=== PATIENT | female | born 1990 | race Caucasian/White ===

== ENCOUNTER 2021-10-15 06:06 | Inpatient (IN) ==
[2021-10-15] MEDS ORDERED: OXYTOCIN 30 UNITS/500 ML BAG IV PRN ×3 (07:07→18:53)
[2021-10-15] MEDS ORDERED: ONDANSETRON INJ 2 MG/ML 2 ML VIAL IV PRN ×2 (07:27→11:11)
--- NOTE | 2021-10-15 07:33 | History & Physical Report ---
Date of Service October 15, 2021 Assessment & Plan (1) Premature rupture of membranes: Plan: 31-year-old G1, P0 at 38 weeks and 1 day gestation presenting with premature rupture of membranes at term, no signs of labor, Vital signs stable afebrile, heart rate reassuring, GBS negative, Discussed decreased risk of intermittent infection with induction of labor at term with oxytocin, Discussed pain management during labor with epidural, Patient understands all and agrees with induction of labor with oxytocin and will decide for epidural later, All questions were answered. Admission and Anticipated Discharge Date Admission Date: October 15, 2021 History of Present Illness Primary Care Provider: NO PCP Patient is a 31-year-old G1, P0 at 38 weeks and 1 day gestation who woke up with a gush of fluid leakage at 4:30 AM this morning. It was clear and she has been trickling clear fluid since then. She started to have mild irregular contractions, they are not painful yet. She denies vaginal bleeding, fever chills, headache, change in her vision, nausea or vomiting. She reports movements. Her has been complicated by, 1. Low-lying placenta, resolved, 2. Mild asthma, 3. Back pain, herniated disc, 4. COVID-19 during , on July 17, was mild disease, GBS negative Allergies Allergy/AdvReac Type Severity Reaction Status Date / Time cat dander Allergy Unknown Unknown Verified 10/15/21 07:19 pollen extracts Allergy Unknown Unknown Verified 10/15/21 07:19 Home Medications Medication Instructions Recorded Confirmed Type fluticasone 250 mcg-salmeterol 50 1 inh INHALATION BID 10/15/21 10/15/21 History mcg/dose blistr powdr for inhalation (Advair Diskus) vit no.95-ferrous 1 tab PO DAILY 10/15/21 10/15/21 History fumarate 28 mg-folic acid 800 mcg tablet () Patient History Medical History Asthma PRN inhaler Depression with anxiety no current meds Herniated disc Low-lying placenta resolved Surgical History No history of previous surgery Family History Other No known health problems Social History Smoking Status: Never smoker Hx Alcohol Use: No Hx Substance Use: No Preferred Language: Maltese Communication Ability: Effective 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 Hand Required: No Beliefs That Will Affect Care: None marital status: Galo Jennings Current Living Situation: Significant Other Current Living Situation Comment: house Other Information That Helps Us Care for You: No Feels Safe at Home: Yes and No Is there a partner from a previous relationship who is making you feel unsafe now?: No Any Concerns about Your Family Situation: No Would You Like to Speak to Someone About Your Situation: No Safety Concerns: Feels Safe At This Time 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 No history of STDs, herpes, chlamydia, gonorrhea Review of Systems as per Subjective / HPI Physical Exam Constitutional: WD/WN, vitals as above well developed, well nourished and + obese Comfortable, not in acute distress Gastrointestinal (Abdomen): normal bowel sounds, soft, nontender, no hepatosplenomegaly (Gravid) Genitourinary: normal external appearance (Grossly ruptured clear amniotic fluid) OB Exam Abdomen: + vertex Manual OB Exam: + cervical dilation 1 cm, + cervical effacement 50% and + station -2 OB Exam Monitor Tracing: + external uterine monitor used and + category I Results & Data ([facility]) Vital Signs (Past 12 Hours) Vital Signs Temp Pulse Resp BP 10/15/21 07:07 83 143/89 H 10/15/21 06:38 36.5 C 18 10/15/21 06:27 36.5 C 95 H 18 138/89
[2021-10-15 07:50] LABS: Hemoglobin 13.5 g/dL (12.0-16.0); Mean Corpuscular Hemoglobin 31.1 pg (25-34); Mean Corpuscular Hgb Conc 34.6 g/dL (32-36); Mean Corpuscular Volume 89.9 fL (80-100); Mean Platelet Volume 10.9 fL (7.4-10.4); Platelet Count 238 K/uL (130-400); RDW Coefficient of Variation 13.8 % (11.5-14.5); RDW Standard Deviation 45.7 fL (36.4-46.3); Red Blood Count 4.34 M/uL (4.2-5.4); White Blood Count 12.43 K/uL (4.8-10.8)
[2021-10-15] MEDS: FLUTICASONE/VILANTEROL 200/25MCG 14 PUFFS/INHALER INH SCH (08:05)
[2021-10-15] MEDS: LACTATED RINGER'S 1,000 ML IV PRN ×3 (08:17→17:55)
[2021-10-15 08:59] LABS: Alanine Aminotransferase 12 U/L (7-52); Albumin Level 3.4 gm/dl (3.4-5.0); Alkaline Phosphatase 197 U/L (34-104); Anion Gap 10 (3-11); BUN Creatinine Ratio 12.9 (10-20); Bilirubin,Total 0.3 mg/dl (0.2-1.0); Blood Urea Nitrogen 8 mg/dl (6-23); Calcium 8.8 mg/dl (8.5-10.1); Carbon Dioxide 20 mmol/L (21-32); Chloride 105 mmol/L (98-107); Creatinine Clr Calc Pharmacy 139.1 ml/min; Est GFR (African American) 138.3 ml/min; Est GFR (Non-African American) 119.3 ml/min; Glucose 78 mg/dl (70-99(Fasting)); Sodium 135 mmol/L (136-145)
[2021-10-15 09:35] LABS: Globulin 3.4 gm/dl (2.5-4.0); Total Protein 6.8 gm/dl (6.0-8.3)
[2021-10-15] MEDS ORDERED: BUPIVACAINE 0.25% 30 ML VIAL ONE (10:04)
[2021-10-15] MEDS ORDERED: fentaNYL citrate 100 MCG/2 ML VIAL ONE (10:04)
[2021-10-15] MEDS ORDERED: ePHEDrine sulfate 50 MG/ML AMP ONE (10:04)
[2021-10-15] MEDS ORDERED: SODIUM CHLORIDE 0.9% INJ 10 ML VIAL ONE (10:04)
[2021-10-15] MEDS ORDERED: fentaNYL 2MCG/ML ROPIVACAINE 1.25MG/ML 100 ML BAG EPI ONE (10:05)
[2021-10-15] MEDS ORDERED: NALOXONE HCL 0.4 MG/1 ML VIAL/CARP IV PRN (11:11)
[2021-10-15] MEDS ORDERED: ePHEDrine sulfate 50 MG/ML AMP IV PRN (11:11)
[2021-10-15] MEDS ORDERED: NALBUPHINE HCL INJ 10 MG/ML AMP IV PRN (11:11)
[2021-10-15] MEDS ORDERED: PROMETHAZINE HCL 6.25 MG in SODIUM CHLORIDE 0.9% 50 ML IV PRN (11:11)
[2021-10-15] MEDS ORDERED: NALOXONE HCL 1 MG in SODIUM CHLORIDE 0.9% 1000ML 1,000 ML IV PRN (11:11)
[2021-10-15] MEDS ORDERED: diphenhydrAMINE 50 MG/ML VIAL IV PRN (11:11)
[2021-10-15] MEDS ORDERED: fentaNYL 2MCG/ML ROPIVACAINE 1.25MG/ML 100 ML BAG EPI PRN (11:11)
--- NOTE | 2021-10-15 11:11 | Anesthesiology Consultation ---
Date of Service October 15, 2021 Assessment & Plan Chart Review Chart Review: Acceptable Risk for Surgery and Patient NOT seen in Pre Admission Testing Consults Requested none ASA ASA2 Proposed Anesthesia Anesthesia Type: Labor Epidural Risk / Benefits Reviewed With: PT / POA / Parent / Guardian, Accepts Plan and Informed Consent Obtained History Height/Weight Height: 5 ft 2 in Weight: 93.894 kg Allergies Allergy/AdvReac Type Severity Reaction Status Date / Time cat dander Allergy Unknown Unknown Verified 10/15/21 07:19 pollen extracts Allergy Unknown Unknown Verified 10/15/21 07:19 Medications Home Medications Medication Instructions Recorded Confirmed Last Taken fluticasone 250 mcg-salmeterol 50 1 inh INHALATION BID 10/15/21 10/15/21 Unknown mcg/dose blistr powdr for inhalation (Advair Diskus) vit no.95-ferrous 1 tab PO DAILY 10/15/21 10/15/21 10/14/21 fumarate 28 mg-folic acid 800 mcg tablet () Active Medications Generic Name Dose Route Start Last Admin Trade Name Freq PRN Reason Stop Dose Admin Fluticasone/Vilanterol 1 puffs 10/15/21 09:00 10/15/21 08:05 Fluticasone/Vilanterol 200/25mcg 14 Puffs/Inhaler INH 11/14/21 08:59 Not Given DAILY MARINO Lactated Ringer's 1,000 mls @ 150 mls/hr 10/15/21 07:07 10/15/21 10:58 Lr IV 10/17/21 07:06 125 mls/hr .[id number] PRN Administration L&D Protocol Protocol Oxytocin 30 units in 500 mls @ 4 mls/hr 10/15/21 07:35 10/15/21 09:15 Pitocin IV 10/17/21 07:34 0.24 units/hr .Q24H PRN 4 mls/hr Labor Induction/Augmentation Titration Protocol 0.24 UNITS/HR Past Medical History Medical History Asthma PRN inhaler Depression with anxiety no current meds Herniated disc Low-lying placenta resolved Exercise / Class Metabolic Activity II 4-5 Yardwork/Stairs/Walk up hill Past Family History Family History Other No known health problems Past Surgical History Surgical History No history of previous surgery Past Anesthesia History No Hx of Anesthesia Complications and No Family Hx of Anesthesia Complications History of PONV No Hx of PONV and No Hx of Motion Sickness Social History Smoking Status: Never smoker Hx Alcohol Use: No Hx Substance Use: No Physical Exam Vital Signs Last Vital Signs Temp 37.0 C 10/15/21 10:24 Pulse 88 10/15/21 11:08 Resp 18 10/15/21 08:18 BP 135/75 10/15/21 11:08 Pulse Ox 98 10/15/21 11:08 ENMT Mouth: no dentition abnormality Thyromental Distance: > or= 3.5 Finger Breadths Mallampati Class: II Neck normal visual inspection Respiratory normal respiratory effort Auscultation: lungs clear to auscultation bilaterally Cardiovascular Rate/Rhythm: regular rate and regular rhythm Psychiatric Orientation: alert Testing Laboratory Results 10/15/21 07:24 10/15/21 07:24 Blood Type A Positive 10/15/21 07:24 Blood Type Cancelled 10/15/21 07:24 Antibody Screen Cancelled 10/15/21 07:24 Antibody Screen NEGATIVE 10/15/21 07:24
--- NOTE | 2021-10-15 16:41 | Obstetrical Progress Note ---
Date of Service October 15, 2021 Assessment & Plan Admission and Anticipated Discharge Date Admission Date: October 15, 2021 Subjective Late entry from 1555 VE; 9.5 ( tiny lip on the left) 10%/ +1 FHR categ I She does not have urge to push Will continue to monitor closely Results & Data ([facility]) Vital Signs (Past 12 Hours) Vital Signs Temp Pulse Resp BP Pulse Ox 10/15/21 16:38 115 H 97 10/15/21 16:33 97 H 97 10/15/21 16:31 85 116/61 10/15/21 16:28 88 98 10/15/21 16:23 89 96 10/15/21 16:18 90 97 10/15/21 16:16 88 120/58 L 10/15/21 16:13 91 H 97 10/15/21 16:08 96 H 97 10/15/21 16:03 92 H 97 10/15/21 16:01 96 H 112/69 10/15/21 16:00 20 10/15/21 15:58 87 98 10/15/21 15:53 107 H 96 10/15/21 15:48 100 H 97 10/15/21 15:43 91 H 96 10/15/21 15:38 81 97 10/15/21 15:36 91 H 136/74 10/15/21 15:33 91 H 97 10/15/21 15:32 88 160/98 H 10/15/21 15:30 36.7 C 20 10/15/21 15:28 90 96 10/15/21 15:23 85 97 10/15/21 15:18 84 96 10/15/21 15:15 89 141/86 H 10/15/21 15:13 87 96 10/15/21 15:08 92 H 96 10/15/21 15:03 84 96 10/15/21 15:01 86 133/84 10/15/21 15:00 20 10/15/21 14:58 85 96 10/15/21 14:53 95 H 97 10/15/21 14:48 95 H 96 10/15/21 14:47 81 144/86 H 10/15/21 14:43 90 98 10/15/21 14:38 86 97 10/15/21 14:33 92 H 97 10/15/21 14:30 87 142/86 H 10/15/21 14:28 89 96 10/15/21 14:23 82 97 10/15/21 14:18 78 98 10/15/21 14:13 87 97 10/15/21 14:08 95 H 97 10/15/21 14:03 91 H 98 10/15/21 14:01 70 108/55 L 10/15/21 13:58 69 97 10/15/21 13:53 68 97 10/15/21 13:48 71 96 10/15/21 13:45 69 102/58 L 10/15/21 13:43 71 96 10/15/21 13:38 68 97 10/15/21 13:33 73 97 10/15/21 13:30 66 20 101/59 L 10/15/21 13:28 75 96 10/15/21 13:23 73 97 10/15/21 13:18 71 97 10/15/21 13:15 70 101/57 L 10/15/21 13:13 74 98 10/15/21 13:08 76 97 10/15/21 13:03 72 97 10/15/21 13:01 73 102/58 L 10/15/21 13:00 37.2 C 20 10/15/21 12:58 76 97 10/15/21 12:53 77 97 10/15/21 12:48 71 96 10/15/21 12:46 71 111/66 10/15/21 12:43 72 96 10/15/21 12:42 73 94 10/15/21 12:38 71 95 10/15/21 12:33 76 95 10/15/21 12:30 77 20 105/65 10/15/21 12:28 68 96 10/15/21 12:23 72 96 10/15/21 12:18 78 95 10/15/21 12:17 71 108/64 10/15/21 12:13 75 97 10/15/21 12:08 79 97 10/15/21 12:03 85 97 10/15/21 12:01 89 103/55 L 10/15/21 12:00 18 10/15/21 11:58 76 97 10/15/21 11:53 79 98 10/15/21 11:48 72 97 10/15/21 11:45 71 106/56 L 10/15/21 11:43 88 97 04/11/22 11:38 78 128/62 98 10/15/21 11:36 92 H 87/48 L 10/15/21 11:34 94 H 111/55 L 10/15/21 11:33 85 96 10/15/21 11:32 96 H 93/51 L 10/15/21 11:30 93 H 20 105/58 L 10/15/21 11:28 84 108/58 L 96 10/15/21 11:26 83 109/64 10/15/21 11:24 100 H 107/57 L 10/15/21 11:23 98 H 97 10/15/21 11:22 80 116/60 10/15/21 11:20 103 H 123/63 10/15/21 11:18 89 133/68 96 10/15/21 11:16 93 H 125/68 10/15/21 11:15 93 H 132/70 10/15/21 11:13 99 H 96 10/15/21 11:12 88 141/71 H 10/15/21 11:10 98 H 131/68 10/15/21 11:08 88 135/75 98 10/15/21 11:04 87 167/88 H 10/15/21 11:03 86 98 10/15/21 11:02 85 179/92 H 10/15/21 10:58 87 97 10/15/21 10:55 36.7 C 20 10/15/21 10:53 90 98 10/15/21 10:48 80 98 10/15/21 10:43 79 97 10/15/21 10:38 78 96 10/15/21 10:33 81 155/90 H 97 10/15/21 10:24 37.0 C 10/15/21 09:48 87 139/85 10/15/21 08:18 18 10/15/21 07:30 37.0 C 18 10/15/21 07:07 83 143/89 H 10/15/21 06:38 36.5 C 18 10/15/21 06:27 36.5 C 95 H 18 138/89
--- NOTE | 2021-10-15 16:42 | Obstetrical Progress Note ---
Date of Service October 15, 2021 Assessment & Plan Admission and Anticipated Discharge Date Admission Date: October 15, 2021 Subjective Patient is reevaluated She feels pressure FHR categ I VE: 10/100%/ +2 Will start pushing Continue to monitor closely Anticipate Results & Data ([facility]) Vital Signs (Past 12 Hours) Vital Signs Temp Pulse Resp BP Pulse Ox 10/15/21 16:38 115 H 97 10/15/21 16:33 97 H 97 10/15/21 16:31 85 116/61 10/15/21 16:28 88 98 10/15/21 16:23 89 96 10/15/21 16:18 90 97 10/15/21 16:16 88 120/58 L 10/15/21 16:13 91 H 97 10/15/21 16:08 96 H 97 10/15/21 16:03 92 H 97 10/15/21 16:01 96 H 112/69 10/15/21 16:00 20 10/15/21 15:58 87 98 10/15/21 15:53 107 H 96 10/15/21 15:48 100 H 97 10/15/21 15:43 91 H 96 10/15/21 15:38 81 97 10/15/21 15:36 91 H 136/74 10/15/21 15:33 91 H 97 10/15/21 15:32 88 160/98 H 10/15/21 15:30 36.7 C 20 10/15/21 15:28 90 96 10/15/21 15:23 85 97 10/15/21 15:18 84 96 10/15/21 15:15 89 141/86 H 10/15/21 15:13 87 96 10/15/21 15:08 92 H 96 10/15/21 15:03 84 96 10/15/21 15:01 86 133/84 10/15/21 15:00 20 10/15/21 14:58 85 96 10/15/21 14:53 95 H 97 10/15/21 14:48 95 H 96 10/15/21 14:47 81 144/86 H 10/15/21 14:43 90 98 10/15/21 14:38 86 97 10/15/21 14:33 92 H 97 10/15/21 14:30 87 142/86 H 10/15/21 14:28 89 96 10/15/21 14:23 82 97 10/15/21 14:18 78 98 10/15/21 14:13 87 97 10/15/21 14:08 95 H 97 10/15/21 14:03 91 H 98 10/15/21 14:01 70 108/55 L 10/15/21 13:58 69 97 10/15/21 13:53 68 97 10/15/21 13:48 71 96 10/15/21 13:45 69 102/58 L 10/15/21 13:43 71 96 10/15/21 13:38 68 97 10/15/21 13:33 73 97 10/15/21 13:30 66 20 101/59 L 10/15/21 13:28 75 96 10/15/21 13:23 73 97 10/15/21 13:18 71 97 10/15/21 13:15 70 101/57 L 10/15/21 13:13 74 98 10/15/21 13:08 76 97 10/15/21 13:03 72 97 10/15/21 13:01 73 102/58 L 10/15/21 13:00 37.2 C 20 10/15/21 12:58 76 97 10/15/21 12:53 77 97 10/15/21 12:48 71 96 10/15/21 12:46 71 111/66 10/15/21 12:43 72 96 10/15/21 12:42 73 94 10/15/21 12:38 71 95 10/15/21 12:33 76 95 10/15/21 12:30 77 20 105/65 10/15/21 12:28 68 96 10/15/21 12:23 72 96 10/15/21 12:18 78 95 10/15/21 12:17 71 108/64 10/15/21 12:13 75 97 10/15/21 12:08 79 97 10/15/21 12:03 85 97 10/15/21 12:01 89 103/55 L 10/15/21 12:00 18 10/15/21 11:58 76 97 10/15/21 11:53 79 98 10/15/21 11:48 72 97 10/15/21 11:45 71 106/56 L 10/15/21 11:43 88 97 10/15/21 11:38 78 128/62 98 10/15/21 11:36 92 H 87/48 L 10/15/21 11:34 94 H 111/55 L 10/15/21 11:33 85 96 10/15/21 11:32 96 H 93/51 L 10/15/21 11:30 93 H 20 105/58 L 10/15/21 11:28 84 108/58 L 96 10/15/21 11:26 83 109/64 10/15/21 11:24 100 H 107/57 L 10/15/21 11:23 98 H 97 10/15/21 11:22 80 116/60 10/15/21 11:20 103 H 123/63 10/15/21 11:18 89 133/68 96 10/15/21 11:16 93 H 125/68 10/15/21 11:15 93 H 132/70 10/15/21 11:13 99 H 96 10/15/21 11:12 88 141/71 H 10/15/21 11:10 98 H 131/68 10/15/21 11:08 88 135/75 98 10/15/21 11:04 87 167/88 H 10/15/21 11:03 86 98 10/15/21 11:02 85 179/92 H 10/15/21 10:58 87 97 10/15/21 10:55 36.7 C 20 10/15/21 10:53 90 98 10/15/21 10:48 80 98 10/15/21 10:43 79 97 10/15/21 10:38 78 96 10/15/21 10:33 81 155/90 H 97 10/15/21 10:24 37.0 C 10/15/21 09:48 87 139/85 10/15/21 08:18 18 10/15/21 07:30 37.0 C 18 10/15/21 07:07 83 143/89 H 10/15/21 06:38 36.5 C 18 10/15/21 06:27 36.5 C 95 H 18 138/89
[2021-10-15] MEDS ORDERED: MINERAL OIL 30 ML UDC ONE (17:07)
--- NOTE | 2021-10-15 17:50 | Obstetrical Progress Note ---
Date of Service October 15, 2021 Assessment & Plan Admission and Anticipated Discharge Date Admission Date: October 15, 2021 Subjective Patient has been pushing with good efforts for about an hour. small caput is v isible with pushes. FHR categ I Anticipate Continue to monitor Results & Data ([facility]) Vital Signs (Past 12 Hours) Vital Signs Temp Pulse Resp BP Pulse Ox 10/15/21 17:47 129 H 144/69 H 10/15/21 17:43 152 H 97 10/15/21 17:38 119 H 98 10/15/21 17:33 122 H 97 10/15/21 17:30 118 H 145/82 H 10/15/21 17:28 155 H 97 10/15/21 17:23 147 H 96 10/15/21 17:18 144 H 96 10/15/21 17:17 136 H 145/78 H 10/15/21 17:13 130 H 97 10/15/21 17:12 129 H 90 10/15/21 17:08 135 H 96 10/15/21 17:03 131 H 96 10/15/21 16:58 162 H 98 10/15/21 16:53 139 H 98 10/15/21 16:48 155 H 98 10/15/21 16:43 115 H 97 10/15/21 16:38 115 H 97 10/15/21 16:33 97 H 97 10/15/21 16:31 85 116/61 10/15/21 16:28 88 98 10/15/21 16:23 89 96 10/15/21 16:18 90 97 10/15/21 16:16 88 120/58 L 10/15/21 16:13 91 H 97 10/15/21 16:08 96 H 97 10/15/21 16:03 92 H 97 10/15/21 16:01 96 H 112/69 10/15/21 16:00 20 10/15/21 15:58 87 98 10/15/21 15:53 107 H 96 10/15/21 15:48 100 H 97 10/15/21 15:43 91 H 96 10/15/21 15:38 81 97 10/15/21 15:36 91 H 136/74 10/15/21 15:33 91 H 97 10/15/21 15:32 88 160/98 H 10/15/21 15:30 36.7 C 20 10/15/21 15:28 90 96 10/15/21 15:23 85 97 10/15/21 15:18 84 96 10/15/21 15:15 89 141/86 H 10/15/21 15:13 87 96 10/15/21 15:08 92 H 96 10/15/21 15:03 84 96 10/15/21 15:01 86 133/84 10/15/21 15:00 20 10/15/21 14:58 85 96 10/15/21 14:53 95 H 97 10/15/21 14:48 95 H 96 10/15/21 14:47 81 144/86 H 10/15/21 14:43 90 98 10/15/21 14:38 86 97 10/15/21 14:33 92 H 97 10/15/21 14:30 87 142/86 H 10/15/21 14:28 89 96 10/15/21 14:23 82 97 10/15/21 14:18 78 98 10/15/21 14:13 87 97 10/15/21 14:08 95 H 97 10/15/21 14:03 91 H 98 10/15/21 14:01 70 108/55 L 10/15/21 13:58 69 97 10/15/21 13:53 68 97 10/15/21 13:48 71 96 10/15/21 13:45 69 102/58 L 10/15/21 13:43 71 96 10/15/21 13:38 68 97 10/15/21 13:33 73 97 10/15/21 13:30 66 20 101/59 L 10/15/21 13:28 75 96 10/15/21 13:23 73 97 10/15/21 13:18 71 97 10/15/21 13:15 70 101/57 L 10/15/21 13:13 74 98 10/15/21 13:08 76 97 10/15/21 13:03 72 97 10/15/21 13:01 73 102/58 L 10/15/21 13:00 37.2 C 20 10/15/21 12:58 76 97 10/15/21 12:53 77 97 10/15/21 12:48 71 96 10/15/21 12:46 71 111/66 10/15/21 12:43 72 96 10/15/21 12:42 73 94 10/15/21 12:38 71 95 10/15/21 12:33 76 95 10/15/21 12:30 77 20 105/65 10/15/21 12:28 68 96 10/15/21 12:23 72 96 10/15/21 12:18 78 95 10/15/21 12:17 71 108/64 10/15/21 12:13 75 97 10/15/21 12:08 79 97 10/15/21 12:03 85 97 10/15/21 12:01 89 103/55 L 10/15/21 12:00 18 10/15/21 11:58 76 97 10/15/21 11:53 79 98 10/15/21 11:48 72 97 10/15/21 11:45 71 106/56 L 10/15/21 11:43 88 97 10/15/21 11:38 78 128/62 98 10/15/21 11:36 92 H 87/48 L 10/15/21 11:34 94 H 111/55 L 10/15/21 11:33 85 96 10/15/21 11:32 96 H 93/51 L 10/15/21 11:30 93 H 20 105/58 L 10/15/21 11:28 84 108/58 L 96 10/15/21 11:26 83 109/64 10/15/21 11:24 100 H 107/57 L 10/15/21 11:23 98 H 97 10/15/21 11:22 80 116/60 10/15/21 11:20 103 H 123/63 10/15/21 11:18 89 133/68 96 10/15/21 11:16 93 H 125/68 10/15/21 11:15 93 H 132/70 10/15/21 11:13 99 H 96 10/15/21 11:12 88 141/71 H 10/15/21 11:10 98 H 131/68 10/15/21 11:08 88 135/75 98 10/15/21 11:04 87 167/88 H 10/15/21 11:03 86 98 10/15/21 11:02 85 179/92 H 10/15/21 10:58 87 97 10/15/21 10:55 36.7 C 20 10/15/21 10:53 90 98 10/15/21 10:48 80 98 10/15/21 10:43 79 97 10/15/21 10:38 78 96 10/15/21 10:33 81 155/90 H 97 10/15/21 10:24 37.0 C 10/15/21 09:48 87 139/85 10/15/21 08:18 18 10/15/21 07:30 37.0 C 18 10/15/21 07:07 83 143/89 H 10/15/21 06:38 36.5 C 18 10/15/21 06:27 36.5 C 95 H 18 138/89
[2021-10-15] MEDS ORDERED: METHYLERGONOVINE MALEATE 0.2 MG/ML AMP ONE (18:29)
[2021-10-15] MEDS ORDERED: bisacodyL 10 MG SUPP PR PRN (18:53)
[2021-10-15] MEDS ORDERED: BENZOCAINE 20% AER SPR 82.5 GM CAN EXT PRN (18:53)
[2021-10-15] MEDS ORDERED: ACETAMINOPHEN 325 MG TAB PO PRN (18:53)
[2021-10-15] MEDS ORDERED: DIPHTHERIA/TETANUS/PERTUSSIS 0.5 ML SYR/VIAL IM ONE (18:53)
[2021-10-15] MEDS ORDERED: METHYLERGONOVINE MALEATE 0.2 MG/ML AMP IM ONE (18:53)
[2021-10-15] MEDS ORDERED: MEASLES, MUMPS & RUBELLA VIRUS VIAL SQ ONE (18:53)
[2021-10-15] MEDS ORDERED: HYDROCORTISONE ACETATE 25 MG SUPP PR PRN (18:53)
[2021-10-15] MEDS ORDERED: OXYTOCIN 20 UNITS in LACTATED RINGER'S 1,000 ML IV SCH (19:00)
--- NOTE | 2021-10-15 19:02 | Delivery Summary ---
Vaginal Delivery Summary Date of Service October 15, 2021 Vaginal Delivery Summary Patient was found to be fully dilated and desire to push. She Pushed for about 1-1/2 hours and delivered the head without difficulty. The shoulders were delivered with minimal traction and the baby was handed off to the mother that her mouth and nose were suctioned and the cord was clamped x2 and cut at 1 minute delay.The vagina and perineum were checked for lacerations. there was a second-degree perineal laceration which was confirmed with rectal exam, excellent Sphincter tone was noted. And there was another second-degree vaginal laceration at the right vaginal wall aiming towards superiorly anterior fornix. Rectal exam was repeated and the perineal body muscles around the sphincter were held with Allis clamps to support the sphincter.[id number] stitches were placed on the muscles with 2-0 Vicryl x2. Then the rectal exam was finished gloves were changed rest of the vaginal Mucosa was repaired with another 2-0 Vicryl in a running fashion skin in a subcuticular fashion. Average retractor was placed in the anterior vaginal wall to visualize the laceration on the lateral vagina. It was repaired with 2-0 Vicryl in a running fashion. Excellent hemostasis achieved. Then the placenta was found to be in the vagina, delivered spontaneously as intact and complete. Uterus was explored and found to be empty cleared of all clots and debris's.EBL was 300 mL. Vaginal packing was placed in the vagina and the Hamilton catheter was placed to drain the bladder. Those will be removed in the morning. The mom and baby tolerated procedure well. The sponge needle instrument count was correct x2. There was a viable male infant Apgars 8/9 and weight is pending. No complications happened and I was present during whole procedure.
--- NOTE | 2021-10-15 19:26 | Anesthesia Procedure Note ---
Date of Service October 15, 2021 Anesthesia Post Epidural Note Vital Signs Vital Signs: Temp Pulse Resp BP Pulse Ox 36.7 C 98 H 18 143/70 H 97 10/15/21 15:30 10/15/21 19:18 10/15/21 19:03 10/15/21 19:18 10/15/21 18:23 Notes Mental Status: alert / awake / arousable Nausea / Vomiting: adequately controlled Pain: adequately controlled Airway Patency, RR, SpO2: stable & adequate BP & HR: stable & adequate Hydration State: stable & adequate Neuraxial Anesthesia: was administered and sensory block is resolving Anesthetic Complications: no major complications apparent and Pt Satisfied with anesthetic care Epidural: Removed without complications and With tip intact
[2021-10-15] MEDS: IBUPROFEN 600 MG TAB PO PRN (21:13)
[2021-10-15] MEDS: DOCUSATE SODIUM 100 MG CAP PO SCH (21:13)
[2021-10-15] MEDS: METHYLERGONOVINE MALEATE 0.2 MG TAB PO SCH (21:38)
[2021-10-15] MEDS: MAGNESIUM HYDROXIDE SUSP 30 ML UDC PO SCH (21:41)
[2021-10-16] MEDS: oxyCODONE/ACETAMINOPHEN 5mg/325mg TAB PO PRN ×3 (00:17→23:25)
[2021-10-16] MEDS: IBUPROFEN 600 MG TAB PO PRN ×5 (04:31→20:40)
[2021-10-16] MEDS: METHYLERGONOVINE MALEATE 0.2 MG TAB PO SCH ×6 (04:33→20:40)
[2021-10-16 06:51] LABS: Hematocrit (blood only) 32.7 % (37-47); Hemoglobin 11.6 g/dL (12.0-16.0); Mean Corpuscular Hemoglobin 31.8 pg (25-34); Mean Corpuscular Hgb Conc 35.5 g/dL (32-36); Mean Corpuscular Volume 89.6 fL (80-100); Mean Platelet Volume 10.4 fL (7.4-10.4); Platelet Count 193 K/uL (130-400); RDW Coefficient of Variation 13.8 % (11.5-14.5); RDW Standard Deviation 45.3 fL (36.4-46.3); Red Blood Count 3.65 M/uL (4.2-5.4); White Blood Count 19.07 K/uL (4.8-10.8)
--- NOTE | 2021-10-16 07:29 | Obstetrical Progress Note ---
Date of Service October 16, 2021 Assessment & Plan (1) Normal course: Continue routine care Will give 1 dose of Percocet prior to vaginal packing and Shah to be removed moved this morning Anticipate discharge home tomorrow Subjective Ambulation: limited ambulation Voiding: shah catheter in place Passing Gas:: Yes Diet Tolerance:: regular diet Lochia:: Small Feeding Type:: breast feeding Current Pain Level(1-10): 4 vaginal packing and shah in place this morning Physical Exam Constitutional WD/WN, vitals as above Respiratory normal respiratory effort, lungs clear to auscultation Cardiovascular RRR, no murmur, no edema Gastrointestinal (Abdomen) normal bowel sounds, soft, nontender, no hepatosplenomegaly Results & Data ([facility]) Vital Signs (Past 12 Hours) Vital Signs Temp Pulse Pulse Resp BP BP 10/16/21 03:45 36.6 C 84 18 120/81 10/16/21 00:10 36.8 C 85 18 126/82 10/15/21 21:40 36.8 C 90 18 124/78 10/15/21 20:48 36.8 C 86 18 116/67 10/15/21 20:33 98 H 134/81 10/15/21 20:18 101 H 118/65 10/15/21 20:17 18 10/15/21 20:03 90 121/61 10/15/21 19:49 87 122/64 10/15/21 19:48 18 10/15/21 19:40 83 136/72 10/15/21 19:34 92 H 148/94 H 10/15/21 19:32 36.8 C 18 Laboratory Results H/H 11.6/32.7%
[2021-10-16] MEDS ORDERED: oxyCODONE/ACETAMINOPHEN 5mg/325mg TAB PO ONE (07:42)
[2021-10-16] MEDS: FERROUS SULFATE 325 MG TAB PO SCH (08:14)
[2021-10-16] MEDS: DOCUSATE SODIUM 100 MG CAP PO SCH ×2 (08:14→20:40)
[2021-10-16] MEDS: PRENATAL VITAMIN 1 TAB PO SCH (08:15)
[2021-10-16] MEDS: MAGNESIUM HYDROXIDE SUSP 30 ML UDC PO SCH ×2 (08:16→20:42)
[2021-10-16] MEDS: FLUTICASONE/VILANTEROL 200/25MCG 14 PUFFS/INHALER INH SCH (08:22)
[2021-10-16] MEDS ORDERED: bisacodyL 5 MG TABEC PO SCH (20:00)
[2021-10-17] MEDS: IBUPROFEN 600 MG TAB PO PRN ×2 (05:59→12:45)
[2021-10-17 07:11] LABS: Basophils # (auto) 0.03 K/uL (0-0.2); Basophils % (auto) 0.2 %; Eosinophils # (auto) 0.34 K/uL (0-0.5); Hematocrit (blood only) 31.3 % (37-47); Hemoglobin 10.6 g/dL (12.0-16.0); Immature Granulocytes # (auto) 0.07 K/uL (0.00-0.02); Immature Granulocytes % (auto) 0.4 %; Mean Corpuscular Hemoglobin 30.9 pg (25-34); Mean Corpuscular Hgb Conc 33.9 g/dL (32-36); Mean Corpuscular Volume 91.3 fL (80-100); Mean Platelet Volume 10.6 fL (7.4-10.4); Monocytes % (auto) 6.4 %; Neutrophils # (auto) 13.22 K/uL (1.4-6.5); Platelet Count 212 K/uL (130-400); RDW Coefficient of Variation 14.2 % (11.5-14.5); RDW Standard Deviation 46.8 fL (36.4-46.3); Red Blood Count 3.43 M/uL (4.2-5.4); White Blood Count 17.16 K/uL (4.8-10.8)
--- NOTE | 2021-10-17 07:42 | Obstetrical Progress Note ---
Date of Service October 17, 2021 Assessment & Plan Admission and Anticipated Discharge Date Admission Date: October 15, 2021 Subjective Patient is seen and examined. She feels well, no complaints. Ambulating without dizziness Voiding without difficulty Tolerating regular diet with out N&V Bleeding is minimal No fever/ chills/ CP/ SOB/ N&V/ Leg pain Breast feeding without problems Vital Signs Temp Pulse Resp BP Pulse Ox 10/16/21 23:00 36.3 C L 86 16 114/78 10/16/21 15:50 36.9 C 83 20 101/68 97 10/16/21 12:30 36.2 C L 84 16 129/86 Lab Results 10/15/21 10/15/21 10/15/21 Range/Units 07:24 07:24 07:24 WBC 12.43 H (4.8-10.8) K/uL RBC 4.34 (4.2-5.4) M/uL Hgb 13.5 (12.0-16.0) g/dL Hct 39.0 (37-47) % MCV 89.9 (80-100) fL MCH 31.1 (25-34) pg MCHC 34.6 (32-36) g/dL RDW Std Deviation 45.7 (36.4-46.3) fL RDW Coeff of Farzana 13.8 (11.5-14.5) % Plt Count 238 (130-400) K/uL MPV 10.9 H (7.4-10.4) fL Immature Gran % (Auto) % Neut % (Auto) % Lymph % (Auto) % [place] % (Auto) % Eos % (Auto) % Baso % (Auto) % Neut # (Auto) (1.4-6.5) K/uL Lymph # (Auto) (1.2-3.4) K/uL [place] # (Auto) (0.11-0.59) K/uL Eos # (Auto) (0-0.5) K/uL Baso # (Auto) (0-0.2) K/uL Immature Gran # (Auto) (0.00-0.02) K/uL Sodium 135 L (136-145) mmol/L Potassium TNP Chloride 105 (98-107) mmol/L Carbon Dioxide 20 L (21-32) mmol/L Anion Gap 10 (3-11) BUN 8 (6-23) mg/dl Creatinine 0.62 (0.6-1.2) mg/dl Est Cr Clr Drug Dosing 139.1 ml/min Est GFR ( Amer) 138.3 ml/min Est GFR (Non-Af Amer) 119.3 ml/min BUN/Creatinine Ratio 12.9 (10-20) Glucose 78 (70-99(Fasting)) mg/dl Calcium 8.8 (8.5-10.1) mg/dl Total Bilirubin 0.3 (0.2-1.0) mg/dl AST TNP ALT 12 (7-52) U/L Alkaline Phosphatase 197 H (34-104) U/L Total Protein 6.8 (6.0-8.3) gm/dl Albumin 3.4 (3.4-5.0) gm/dl Globulin 3.4 (2.5-4.0) gm/dl Albumin/Globulin Ratio 1.0 (0.9-2) Blood Type A Positive Antibody Screen NEGATIVE 10/15/21 10/16/21 10/17/21 Range/Units 07:24 06:38 06:35 WBC 19.07 H 17.16 H (4.8-10.8) K/uL RBC 3.65 L 3.43 L (4.2-5.4) M/uL Hgb 11.6 L 10.6 L (12.0-16.0) g/dL Hct 32.7 L 31.3 L (37-47) % MCV 89.6 91.3 (80-100) fL MCH 31.8 30.9 (25-34) pg MCHC 35.5 33.9 (32-36) g/dL RDW Std Deviation 45.3 46.8 H (36.4-46.3) fL RDW Coeff of Farzana 13.8 14.2 (11.5-14.5) % Plt Count 193 212 (130-400) K/uL MPV 10.4 10.6 H (7.4-10.4) fL Immature Gran % (Auto) 0.4 % Neut % (Auto) 77.0 % Lymph % (Auto) 14.0 % [place] % (Auto) 6.4 % Eos % (Auto) 2.0 % Baso % (Auto) 0.2 % Neut # (Auto) 13.22 H (1.4-6.5) K/uL Lymph # (Auto) 2.40 (1.2-3.4) K/uL [place] # (Auto) 1.10 H (0.11-0.59) K/uL Eos # (Auto) 0.34 (0-0.5) K/uL Baso # (Auto) 0.03 (0-0.2) K/uL Immature Gran # (Auto) 0.07 H (0.00-0.02) K/uL Sodium (136-145) mmol/L Potassium Chloride (98-107) mmol/L Carbon Dioxide (21-32) mmol/L Anion Gap (3-11) BUN (6-23) mg/dl Creatinine (0.6-1.2) mg/dl Est Cr Clr Drug Dosing ml/min Est GFR ( Amer) ml/min Est GFR (Non-Af Amer) ml/min BUN/Creatinine Ratio (10-20) Glucose (70-99(Fasting)) mg/dl Calcium (8.5-10.1) mg/dl Total Bilirubin (0.2-1.0) mg/dl AST ALT (7-52) U/L Alkaline Phosphatase (34-104) U/L Total Protein (6.0-8.3) gm/dl Albumin (3.4-5.0) gm/dl Globulin (2.5-4.0) gm/dl Albumin/Globulin Ratio (0.9-2) Blood Type Cancelled Antibody Screen Cancelled PE: General: Alert, orientedx3, NAD Abd: soft, NT, fundus firm, below Umbilicus Perineum intact, Lochia rubra minimal Ext; NT, no edema AP: 31 yo s/p , ppd# 2 VSS Afebrile doing well Continue routine care All questions were answered Discussed when to call D/C home , f/u in office Results & Data ([facility]) Vital Signs (Past 12 Hours) Vital Signs Temp Pulse Resp BP 10/16/21 23:00 36.3 C L 86 16 114/78
[2021-10-17] MEDS: FERROUS SULFATE 325 MG TAB PO SCH (08:07)
[2021-10-17] MEDS: MAGNESIUM HYDROXIDE SUSP 30 ML UDC PO SCH (08:07)
[2021-10-17] MEDS: DOCUSATE SODIUM 100 MG CAP PO SCH (08:07)
[2021-10-17] MEDS: PRENATAL VITAMIN 1 TAB PO SCH (08:07)
[2021-10-17] MEDS: FLUTICASONE/VILANTEROL 200/25MCG 14 PUFFS/INHALER INH SCH (08:11)
== END 2021-10-17 16:27 | disposition home or self-care (01) | DRG 807 ==
LOC: OPB 06:06 → 4S1 06:10 → UNDODISIN 12:20 → 4E2 21:59
DX: O70.1 Second degree perineal laceration during delivery; J45.909 Unspecified asthma, uncomplicated; Z86.16 Personal history of COVID-19; Z3A.38 38 weeks gestation of pregnancy; O99.52 Diseases of the respiratory system complicating childbirth; O42.92 Full-term premature rupture of membranes, unspecified as to length of time between rupture and onset of labor; Z37.0 Single live birth

== ENCOUNTER 2023-11-11 03:23 | Inpatient (IN) ==
--- NOTE | 2023-11-11 04:17 | Obstetrical Progress Note ---
Date of Service November 11, 2023 Assessment & Plan (1) Encounter for pre-operative examination: Plan: at 39+ weeks SROM @ 02;00 VE /-1 Bedside sono VT consented for c/sec Risk and alternatives discussed and reviewed with pt Results & Data Vital Signs (Past 12 Hours) Vital Signs Temp Pulse Resp BP 11/11/23 03:51 95 H 142/93 H 11/11/23 03:39 36.6 C 18 11/11/23 03:38 98 H 144/86 H
[2023-11-11] MEDS: LACTATED RINGER'S 1,000 ML IV SCH ×3 (04:24→08:08)
--- NOTE | 2023-11-11 04:36 | Anesthesiology Consultation ---
Date of Service November 11, 2023 Assessment & Plan (1) Encounter for pre-operative examination: Chart Review Chart Review: Acceptable Risk for Surgery History Surgery Operation Date: 11/11/23 05:00 Proposed Procedures p Section in LD - Logan Gordon MD Height/Weight Height: 5 ft 2 in Weight: 91.626 kg Allergies Allergy/AdvReac Type Severity Reaction Status Date / Time cat dander Allergy Unknown Unknown Verified 10/22/22 08:43 pollen extracts Allergy Unknown Unknown Verified 10/22/22 08:43 Medications Home Medications Medication Instructions Recorded Confirmed Last Taken fluticasone 250 mcg-salmeterol 50 1 inh inhalation BID PRN sob 12/06/21 11/11/23 Unknown mcg/dose blistr powdr for inhalation (Advair Diskus) vit no.95-ferrous 1 tab PO DAILY 11/10/23 11/11/23 11/10/23 fumarate 28 mg-folic acid 800 mcg tablet () Active Medications Generic Name Dose Route Start Last Admin Trade Name Freq PRN Reason Stop Dose Admin Lactated Ringer's 1,000 mls @ 999 mls/hr 11/11/23 04:15 11/11/23 04:24 Lr IV 11/11/23 05:15 999 mls/hr .[id number] MARINO Administration Past Medical History Medical History Environmental and seasonal allergies History of COVID-2021- no hosp; resolved Herniated disc lumbar area Asthma PRN inhaler- has not uses since ~2021 Depression with anxiety no current meds Past Family History Family History Grandfather Colorectal cancer Father Hypertension Stroke Other Diabetes Denies family history of Ovarian cancer Prostate cancer Myocardial infarction Breast cancer Past Surgical History Surgical History History of surgical removal of Bartholin’s gland cyst Hx of removal of cyst tear duct History of removal of skin mole Social History Smoking Status: Never smoker Do You Dip or Chew Tobacco: No Hx Alcohol Use: No Hx Substance Use: No substance use type: does not use Physical Exam Vital Signs Last Vital Signs Temp 36.6 C 11/11/23 03:39 Pulse 95 H 11/11/23 03:51 Resp 18 11/11/23 03:39 BP 142/93 H 11/11/23 03:51
[2023-11-11 04:41] LABS: Basophils # (auto) 0.04 K/uL (0.00-0.20); Basophils % (auto) 0.3 %; Eosinophils # (auto) 0.24 K/uL (0.00-0.50); Eosinophils % (auto) 1.7 %; Hematocrit (blood only) 37.1 % (37.0-47.0); Immature Granulocytes # (auto) 0.09 K/uL (0.01-0.20); Immature Granulocytes % (auto) 0.7 %; Lymphocytes # (auto) 2.07 K/uL (1.20-3.40); Mean Corpuscular Volume 88.5 fL (80.0-100.0); Mean Platelet Volume 10.5 fL (9.4-12.4); Monocytes # (auto) 0.81 K/uL (0.11-0.59); Monocytes % (auto) 5.9 %; Neutrophils # (auto) 10.54 K/uL (1.40-6.50); Neutrophils % (auto) 76.4 %; Platelet Count 214 K/uL (130-400); RDW Coefficient of Variation 12.9 % (11.5-14.5); RDW Standard Deviation 41.4 fL (36.4-46.3); Red Blood Count 4.19 M/uL (4.20-5.40); White Blood Count 13.79 K/ul (4.8-10.8)
[2023-11-11] MEDS: CITRIC ACID/SODIUM CITRATE 15 ML UDC PO ONE (04:47)
[2023-11-11] MEDS: ceFAZolin 2000MG 2,000 MG/15 ML SYR IV ONE (04:48)
[2023-11-11] MEDS ORDERED: NALOXONE HCL 0.08 MG in SYRINGE 1.8 ML IV PRN (05:22)
[2023-11-11] MEDS ORDERED: ONDANSETRON INJ 2 MG/ML 2 ML VIAL IV PRN ×2 (05:22→23:22)
[2023-11-11] MEDS ORDERED: LACTATED RINGER'S 500 ML IV PRN (05:22)
[2023-11-11] MEDS ORDERED: PROMETHAZINE HCL 6.25 MG in SODIUM CHLORIDE 0.9% 50 ML IV PRN (05:22)
[2023-11-11] MEDS ORDERED: KETOROLAC 30 MG/ML VIAL IV PRN (05:22)
[2023-11-11] MEDS ORDERED: MoRPHine SULFATE 2 MG/ML CARP IV PRN (05:22)
[2023-11-11] MEDS ORDERED: diphenhydrAMINE 50 MG/ML VIAL IV PRN ×2 (05:22→23:22)
[2023-11-11] MEDS ORDERED: NALOXONE HCL 1 MG in SODIUM CHLORIDE 0.9% 1,000 ML IV PRN (05:22)
[2023-11-11] MEDS ORDERED: NALBUPHINE HCL 5 MG in SYRINGE 0 ML IV PRN (05:22)
[2023-11-11] MEDS ORDERED: ePHEDrine sulfate 50 MG/ML AMP IV PRN (05:22)
[2023-11-11] MEDS ORDERED: DC INTRASPINAL MORPHINE SCH (05:30)
[2023-11-11] MEDS ORDERED: NO NARCOTICS OR SEDATIVES SCH (05:30)
[2023-11-11] MEDS ORDERED: BENZOCAINE 20% SPRY 85 APPLN/85 GM CAN EXT PRN (06:21)
[2023-11-11] MEDS ORDERED: MAGNESIUM HYDROXIDE SUSP 30 ML UDC PO PRN (06:21)
[2023-11-11] MEDS ORDERED: SENNA 8.6 MG TAB PO PRN (06:21)
[2023-11-11] MEDS ORDERED: HYDROCORTISONE ACETATE 25 MG SUPP PR PRN (06:21)
--- NOTE | 2023-11-11 06:30 | Operative Report ---
Post Operative Report Pre & Post Diagnosis Operation Date: 11/11/23 05:00 Pre-Op Diagnosis: SECTION for breech presentation Post-Op Diagnosis: Same Delivery of live male child at 0525 I identified the patient and participated in the time-out.: Yes Procedure Operation Date: 11/11/23 05:00 Actual Procedures p Section in - Logan Gordon MD Surgeon Logan Gordon MD Machine Ii Engraver Phyllis Mcguire RN Estimated Blood Loss 468 Findings Consistent with Post-Op Diagnosis Male infant in diana breech presentation. Uterus tubes and ovaries appear grossly normal. There is abdominal pelvic exam is unremarkable. Fluids IVF; 2600ml EBL; 468 ml urine : 150Ml clear urine at end of procedure Specimens , 8/9 cord blood and gasses Drains Hamilton cath Anesthesia Type Spinal Complications None Indications at term and in labor breech presentation Description of Procedure Patient brought to the operating room Prepped and draped in normal sterile fashion in dorsal supine position with a leftward tilt. Time out is performed. Patient is identified by name and date of . Allergy and antibiotics and reviewed and confirmed. Skin check is performed to see if anesthesia is adequate A Pfannenstiel incision is made and carried out to the fascia with a scalpel. Fascia is incised in the midline extended laterally on both sides with Siu scissors. Esperanza's were used to grab the superior part of the fascial incision and the rectus abdominis muscle dissected with Siu scissors.. Same procedure was performed on the lower section of the fascia. The rectus muscle is then in the midline and the peritoneum identified, tented up and entered sharply with the Metzenbaum scissors. The peritoneal incision was then extended superiorly and inferiorly with good visualization of the bladder. An Shane retractor was then inserted to provide better visualization and retraction. Vesicouterine peritoneum was identified, grasped with pickups and entered sharply with Metzenbaum scissors. The incision was then extended laterally and the bladder flap created with Metzenbaum scissors. The lower uterine segment incision was performed in a transverse fashion with a scalpel. Uterine incision was then extended laterally with the bandage sciss ors. Amniotomy is performed. Amniotic fluid is clear The infant is in franl breech presentation. Breech maneuvers used to deliver infant w/o any difficulty. There is no nuchall cord. Nose and mouth suctioned with the bulb suction. Delayed cord clamping performed and cord is then clamped and cut and infant is handed over to the waiting pediatric team. Cord blood and gases obtained The placenta is then removed manually the uterus is exteriorized and cleared of all clots and debris. Uterine incision it repaired with 0-Vicryl in a locking fashion. A second layer of 0-Vicryl is used to obtain excellent hemostasis. Uterus is placed back into the abdominal cavity. . Copious amount of irrigation was used to irrigate the abdomen. Gutters were cleared of all clots and debris . Hemostasis was obtained. The Shane retractor is removed as well as sponges or instruments in the abdomen. The peritoneum was identified and closed in a running fashion using plain suture.The rectus abdominis muscle is not approximated. Once again hemostasis is confirmed. The fascia was grasped with Thao's and closed in a running fashion. Both fascial layers are closed together using 0-Vicryl suture. Subcutaneous space is irrigated and hemostasis was confirmed. Subcutaneous space is approximated with plain suture. Skin is closed with chandan. The patient tolerated procedure well sponge just labs needle counts were correct x2 patient is sent to recovery in stable condition I attest to the content of the Intraoperative Record and any orders documented therein. Any exceptions are noted below. Machine Ii Engraver was necessary for retraction and manipulation of instruments in order to provide for a safe operation
[2023-11-11 06:38] LABS: Base Excess Cord Venous Blood -1.9 mEq/L (-7.7-1.9); Cord Venous Blood HCO3 24 mmol/L (18.4-26.8); Cord Venous Blood PCO2 46 mmHg (30.4-57.2); Cord Venous Blood PO2 31 mmHg (14.1-43.3); Cord Venous Blood pH 7.33 (7.20-7.44); O2 Saturation Cord Venous Bld 64.1 % (<68)
--- NOTE | 2023-11-11 06:38 | Anesthesiology Progress Note ---
Date of Service November 11, 2023 Anesthesia Post Procedure Vital Signs Vital Signs: Temp Pulse Resp BP Pulse Ox 11/11/23 06:32 92 H 95 11/11/23 06:30 83 129/63 11/11/23 06:29 81 94 11/11/23 06:27 84 97 11/11/23 06:22 84 97 11/11/23 06:21 86 93 11/11/23 06:20 82 131/62 11/11/23 03:51 95 H 142/93 H 11/11/23 03:39 36.6 C 18 11/11/23 03:38 98 H 144/86 H Transfer of Care Handoff Completed per policy Notes Mental Status: alert / awake / arousable Patient Amnestic to Procedure: Yes Nausea / Vomiting: adequately controlled Pain: adequately controlled Airway Patency, RR, SpO2: stable & adequate BP & HR: stable & adequate Hydration State: stable & adequate Anesthetic Complications: no major complications apparent
[2023-11-11] MEDS: DIPHTHER/TETAN/PERTUS Vaccine (Tdap, Adol/Adult) 0.5mL IM ONE (08:03)
[2023-11-11] MEDS: miSOPROStoL 200 MCG TAB ONE (08:03)
[2023-11-11] MEDS: SIMETHICONE 80 MG CHEW PO SCH (08:07)
[2023-11-11] MEDS: MoRPHine SULFATE PF 1 MG/ML 10 ML AMP/VIAL INT SPINAL ONE (08:07)
[2023-11-11] MEDS: SODIUM CHLORIDE 0.9% 1,000 ML IV SCH (08:07)
[2023-11-11] MEDS: PRENATAL VITAMIN 1 TAB PO SCH (08:08)
[2023-11-11] MEDS: DOCUSATE SODIUM 100 MG CAP PO SCH (08:08)
[2023-11-11] MEDS: FERROUS SULFATE 325 MG TAB PO SCH (08:08)
[2023-11-11] MEDS: OXYTOCIN 20 UNITS/1002ML LR IV ONE (08:52)
[2023-11-11] MEDS: OXYTOCIN 20 UNITS in LACTATED RINGER'S 1,000 ML IV SCH (08:53)
[2023-11-11] MEDS ORDERED: Nursing to Pharmacy Communication SCH (14:30)
[2023-11-11] MEDS: IBUPROFEN 600 MG TAB PO PRN (23:14)
[2023-11-11] MEDS ORDERED: diphenhydrAMINE Capsule 25 MG CAP PO PRN (23:22)
[2023-11-11] MEDS ORDERED: ZOLPIDEM TARTRATE 5 MG TAB PO PRN (23:22)
[2023-11-11] MEDS ORDERED: PROMETHAZINE HCL 25 MG in SODIUM CHLORIDE 0.9% 50 ML IV PRN (23:22)
[2023-11-11] MEDS: oxyCODONE/ACETAMINOPHEN 5mg/325mg TAB PO PRN (23:54)
[2023-11-12 07:10] LABS: Basophils # (auto) 0.04 K/uL (0.00-0.20); Basophils % (auto) 0.2 %; Eosinophils % (auto) 0.6 %; Hematocrit (blood only) 29.7 % (37.0-47.0); Hemoglobin 10.1 g/dl (12.0-16.0); Immature Granulocytes # (auto) 0.12 K/uL (0.01-0.20); Immature Granulocytes % (auto) 0.7 %; Lymphocytes # (auto) 1.65 K/uL (1.20-3.40); Mean Corpuscular Hemoglobin 31.1 pg (25.0-34.0); Mean Corpuscular Volume 91.4 fL (80.0-100.0); Mean Platelet Volume 10.5 fL (9.4-12.4); Monocytes # (auto) 0.98 K/uL (0.11-0.59); Monocytes % (auto) 5.9 %; Neutrophils # (auto) 13.59 K/uL (1.40-6.50); Neutrophils % (auto) 82.6 %; Platelet Count 170 K/uL (130-400); RDW Standard Deviation 42.6 fL (36.4-46.3); Red Blood Count 3.25 M/uL (4.20-5.40); White Blood Count 16.48 K/ul (4.8-10.8)
--- NOTE | 2023-11-12 09:29 | Obstetrical Progress Note ---
Date of Service November 12, 2023 Assessment & Plan Admission and Anticipated Discharge Date Admission Date: November 11, 2023 Subjective Patient is seen and examined. She feels well, no complaints. Pain is under control with oral meds. Ambulating without dizziness Voiding without difficulty Tolerating regular diet with out N&V Flatus + BM neg Bleeding is minimal No fever/ chills/ CP/ SOB/ N&V/ Leg pain Breast feeding without problems Vital Signs Temp Pulse Resp BP Pulse Ox O2 Del Method 11/12/23 07:30 36.8 C 79 16 111/75 99 Room Air 11/12/23 04:00 36.6 C 80 16 118/70 99 Room Air 11/11/23 23:00 16 98 11/11/23 23:00 36.7 C 91 H 16 96/65 L 98 Room Air 11/11/23 22:00 16 99 Lab Results 11/11/23 11/11/23 11/11/23 Range/Units 04:26 05:25 05:25 WBC 13.79 H (4.8-10.8) K/ul RBC 4.19 L (4.20-5.40) M/uL Hgb 13.0 (12.0-16.0) g/dl Hct 37.1 (37.0-47.0) % MCV 88.5 (80.0-100.0) fL MCH 31.0 (25.0-34.0) pg MCHC 35.0 (32.0-36.0) g/dL RDW Std Deviation 41.4 (36.4-46.3) fL RDW Coeff of Farzana 12.9 (11.5-14.5) % Plt Count 214 (130-400) K/uL MPV 10.5 (9.4-12.4) fL Immature Gran % (Auto) 0.7 % Neut % (Auto) 76.4 % Lymph % (Auto) 15.0 % [place] % (Auto) 5.9 % Eos % (Auto) 1.7 % Baso % (Auto) 0.3 % Neut # (Auto) 10.54 H (1.40-6.50) K/uL Lymph # (Auto) 2.07 (1.20-3.40) K/uL [place] # (Auto) 0.81 H (0.11-0.59) K/uL Eos # (Auto) 0.24 (0.00-0.50) K/uL Baso # (Auto) 0.04 (0.00-0.20) K/uL Immature Gran # (Auto) 0.09 (0.01-0.20) K/uL Cord ABG pH TNP Cord ABG pCO2 TNP Cord ABG pO2 TNP Cord ABG HCO3 TNP Cord ABG Base Excess TNP Cord ABG O2 Sat TNP Cord VBG pH 7.33 (7.20-7.44) Cord VBG pCO2 46 (30.4-57.2) mmHg Cord VBG pO2 31 (14.1-43.3) mmHg Cord VBG HCO3 24 (18.4-26.8) mmol/L Cord VBG Base Excess -1.9 (-7.7-1.9) mEq/L Cord VBG O2 Sat 64.1 (<68) % Blood Gas Comments TNP ROJAS Blood Type A Positive 11/12/23 Range/Units 05:54 WBC 16.48 H (4.8-10.8) K/ul RBC 3.25 L (4.20-5.40) M/uL Hgb 10.1 L D (12.0-16.0) g/dl Hct 29.7 L (37.0-47.0) % MCV 91.4 (80.0-100.0) fL MCH 31.1 (25.0-34.0) pg MCHC 34.0 (32.0-36.0) g/dL RDW Std Deviation 42.6 (36.4-46.3) fL RDW Coeff of Farzana 13.0 (11.5-14.5) % Plt Count 170 (130-400) K/uL MPV 10.5 (9.4-12.4) fL Immature Gran % (Auto) 0.7 % Neut % (Auto) 82.6 % Lymph % (Auto) 10.0 % [place] % (Auto) 5.9 % Eos % (Auto) 0.6 % Baso % (Auto) 0.2 % Neut # (Auto) 13.59 H (1.40-6.50) K/uL Lymph # (Auto) 1.65 (1.20-3.40) K/uL [place] # (Auto) 0.98 H (0.11-0.59) K/uL Eos # (Auto) 0.10 (0.00-0.50) K/uL Baso # (Auto) 0.04 (0.00-0.20) K/uL Immature Gran # (Auto) 0.12 (0.01-0.20) K/uL Cord ABG pH Cord ABG pCO2 Cord ABG pO2 Cord ABG HCO3 Cord ABG Base Excess Cord ABG O2 Sat Cord VBG pH (7.20-7.44) Cord VBG pCO2 (30.4-57.2) mmHg Cord VBG pO2 (14.1-43.3) mmHg Cord VBG HCO3 (18.4-26.8) mmol/L Cord VBG Base Excess (-7.7-1.9) mEq/L Cord VBG O2 Sat (<68) % Blood Gas Comments Blood Type PE: General: Alert, orientedx3, NAD CVS: S1S2 RRR Lungs; CTAB Abd: soft, NT, ND, BS+, fundus firm, below Umbilicus Incision/ Dressing: Clean, dry, intact Perineum intact, Lochia rubra minimal Ext; NT, no edema AP: 33 yo s/p C Section, pod# 1 VSS Afebrile doing well Continue routine postop care Encourage ambulation, PO intake All questions were answered Results & Data Vital Signs (Past 12 Hours) Vital Signs Temp Pulse Resp BP Pulse Ox O2 Del Method 11/12/23 07:30 36.8 C 79 16 111/75 99 Room Air 11/12/23 04:00 36.6 C 80 16 118/70 99 Room Air 11/11/23 23:00 16 98 11/11/23 23:00 36.7 C 91 H 16 96/65 L 98 Room Air 11/11/23 22:00 16 99
[2023-11-12] MEDS: bisacodyL 5 MG TABEC PO SCH (20:12)
[2023-11-13 06:06] LABS: Basophils # (auto) 0.04 K/uL (0.00-0.20); Basophils % (auto) 0.3 %; Eosinophils # (auto) 0.14 K/uL (0.00-0.50); Eosinophils % (auto) 1.1 %; Hemoglobin 9.8 g/dl (12.0-16.0); Immature Granulocytes # (auto) 0.07 K/uL (0.01-0.20); Immature Granulocytes % (auto) 0.5 %; Lymphocytes # (auto) 1.45 K/uL (1.20-3.40); Lymphocytes % (auto) 11.1 %; Mean Corpuscular Hemoglobin 30.8 pg (25.0-34.0); Mean Corpuscular Hgb Conc 33.8 g/dL (32.0-36.0); Mean Corpuscular Volume 91.2 fL (80.0-100.0); Mean Platelet Volume 10.3 fL (9.4-12.4); Monocytes # (auto) 0.74 K/uL (0.11-0.59); Monocytes % (auto) 5.7 %; Neutrophils # (auto) 10.64 K/uL (1.40-6.50); Neutrophils % (auto) 81.3 %; Platelet Count 181 K/uL (130-400); RDW Coefficient of Variation 13.2 % (11.5-14.5); RDW Standard Deviation 43.7 fL (36.4-46.3); Red Blood Count 3.18 M/uL (4.20-5.40); White Blood Count 13.08 K/ul (4.8-10.8)
[2023-11-13] MEDS ORDERED: bisacodyL 10 MG SUPP PR PRN (06:21)
--- NOTE | 2023-11-13 10:53 | Obstetrical Progress Note ---
Date of Service November 13, 2023 Assessment & Plan Admission and Anticipated Discharge Date Admission Date: November 11, 2023 Subjective Patient is seen and examined. She feels well, no complaints. Pain is under control with oral meds. Ambulating without dizziness Voiding without difficulty Tolerating regular diet with out N&V Flatus + BM neg Bleeding is minimal No fever/ chills/ CP/ SOB/ N&V/ Leg pain Breast feeding without problems Vital Signs Temp Pulse Resp BP Pulse Ox O2 Del Method 11/13/23 03:15 36.9 C 94 H 18 104/69 96 Room Air 11/12/23 19:29 36.7 C 97 H 16 125/83 97 Room Air 11/12/23 15:47 37 C 97 H 16 104/71 97 Room Air Lab Results 11/11/23 11/11/23 11/11/23 Range/Units 04:26 05:25 05:25 WBC 13.79 H (4.8-10.8) K/ul RBC 4.19 L (4.20-5.40) M/uL Hgb 13.0 (12.0-16.0) g/dl Hct 37.1 (37.0-47.0) % MCV 88.5 (80.0-100.0) fL MCH 31.0 (25.0-34.0) pg MCHC 35.0 (32.0-36.0) g/dL RDW Std Deviation 41.4 (36.4-46.3) fL RDW Coeff of Farzana 12.9 (11.5-14.5) % Plt Count 214 (130-400) K/uL MPV 10.5 (9.4-12.4) fL Immature Gran % (Auto) 0.7 % Neut % (Auto) 76.4 % Lymph % (Auto) 15.0 % [place] % (Auto) 5.9 % Eos % (Auto) 1.7 % Baso % (Auto) 0.3 % Neut # (Auto) 10.54 H (1.40-6.50) K/uL Lymph # (Auto) 2.07 (1.20-3.40) K/uL [place] # (Auto) 0.81 H (0.11-0.59) K/uL Eos # (Auto) 0.24 (0.00-0.50) K/uL Baso # (Auto) 0.04 (0.00-0.20) K/uL Immature Gran # (Auto) 0.09 (0.01-0.20) K/uL Cord ABG pH TNP Cord ABG pCO2 TNP Cord ABG pO2 TNP Cord ABG HCO3 TNP Cord ABG Base Excess TNP Cord ABG O2 Sat TNP Cord VBG pH 7.33 (7.20-7.44) Cord VBG pCO2 46 (30.4-57.2) mmHg Cord VBG pO2 31 (14.1-43.3) mmHg Cord VBG HCO3 24 (18.4-26.8) mmol/L Cord VBG Base Excess -1.9 (-7.7-1.9) mEq/L Cord VBG O2 Sat 64.1 (<68) % Blood Gas Comments TNP ROJAS RPR (Nonreactive) Blood Type A Positive 11/11/23 11/12/23 11/13/23 Range/Units 10:37 05:54 05:41 WBC 16.48 H 13.08 H (4.8-10.8) K/ul RBC 3.25 L 3.18 L (4.20-5.40) M/uL Hgb 10.1 L D 9.8 L (12.0-16.0) g/dl Hct 29.7 L 29.0 L (37.0-47.0) % MCV 91.4 91.2 (80.0-100.0) fL MCH 31.1 30.8 (25.0-34.0) pg MCHC 34.0 33.8 (32.0-36.0) g/dL RDW Std Deviation 42.6 43.7 (36.4-46.3) fL RDW Coeff of Farzana 13.0 13.2 (11.5-14.5) % Plt Count 170 181 (130-400) K/uL MPV 10.5 10.3 (9.4-12.4) fL Immature Gran % (Auto) 0.7 0.5 % Neut % (Auto) 82.6 81.3 % Lymph % (Auto) 10.0 11.1 % [place] % (Auto) 5.9 5.7 % Eos % (Auto) 0.6 1.1 % Baso % (Auto) 0.2 0.3 % Neut # (Auto) 13.59 H 10.64 H (1.40-6.50) K/uL Lymph # (Auto) 1.65 1.45 (1.20-3.40) K/uL [place] # (Auto) 0.98 H 0.74 H (0.11-0.59) K/uL Eos # (Auto) 0.10 0.14 (0.00-0.50) K/uL Baso # (Auto) 0.04 0.04 (0.00-0.20) K/uL Immature Gran # (Auto) 0.12 0.07 (0.01-0.20) K/uL Cord ABG pH Cord ABG pCO2 Cord ABG pO2 Cord ABG HCO3 Cord ABG Base Excess Cord ABG O2 Sat Cord VBG pH (7.20-7.44) Cord VBG pCO2 (30.4-57.2) mmHg Cord VBG pO2 (14.1-43.3) mmHg Cord VBG HCO3 (18.4-26.8) mmol/L Cord VBG Base Excess (-7.7-1.9) mEq/L Cord VBG O2 Sat (<68) % Blood Gas Comments RPR Nonreactive (Nonreactive) Blood Type PE: General: Alert, orientedx3, NAD CVS: S1S2 RRR Lungs; CTAB Abd: soft, NT, ND, BS+, fundus firm, below Umbilicus Incision/ Dressing: Clean, dry, intact Perineum intact, Lochia rubra minimal Ext; NT, no edema AP: 33 yo s/p C Section, pod# 2 VSS Afebrile doing well Continue routine postop care Encourage ambulation, PO intake All questions were answered Desires d/c today D/C home , f/u in office Results & Data Vital Signs (Past 12 Hours) Vital Signs Temp Pulse Resp BP Pulse Ox O2 Del Method 11/13/23 03:15 36.9 C 94 H 18 104/69 96 Room Air
--- NOTE | 2023-11-14 15:37 | Discharge Summary ---
Date of Service November 14, 2023 Admission HPI Per Admitting Provider As per H&P Discharge Data Procedures Performed Operation Date: 11/11/23 05:00 Actual Procedures p Section in LD - Logan Gordon MD Hospital Course (1) delivery delivered: Plan Post op course was unremarkable and pt is discharges home in stable condition. Discharge instructions including medications,diet, activity and follow up appointments are reviewed with pt.
== END 2023-11-13 12:15 | disposition home health service (06) | DRG 788 ==
LOC: OPB 03:23 → 4S1 03:26 → 4E2 13:55